=== PATIENT | male | born 1945 | race Caucasian/White ===

== ENCOUNTER 2022-12-11 10:27 | Inpatient (IN) | payer MEDICARE, OTHER ==
[~2022-12-11] VITALS: Ht 172.7 cm; Wt 81.2 kg
[~2022-12-11 10:27] MED LIST: AMLO-212 PO; ASPI-807 PO; GEMF600T90 PO; OMEG1CAP55 PO
--- NOTE | 2022-12-11 10:37 | NUR ---
IV ESTABLISHED L AC 18G. LABS DRAWN AND COLLECTED AT BEDSIDE.
--- NOTE | 2022-12-11 10:40 | NUR ---
EKG DONE AT BEDSIDE BY EMT
--- NOTE | 2022-12-11 10:48 | NUR ---
COVID SWAB TAKEN
[2022-12-11 10:51] LABS: BASOPHILS % (AUTO) 0.5 % (0.0-2.0); EOSINOPHILS % (AUTO) 0.6 % (0.0-6.0); HEMATOCRIT 43 % (39-51); HEMOGLOBIN 14.2 g/dL (13.5-17.5); LYMPHOCYTES % (AUTO) 35.1 % (20.0-44.0); MEAN CORPUSCULAR HGB CONC 33 g/dl (31.0-36.0); MEAN CORPUSCULAR VOLUME 85 fL (80-96); MONOCYTES # (AUTO) 0.3 K/uL (0.1-1.30); MONOCYTES % (AUTO) 5.5 % (2.0-12.0); NEUTROPHILS # (AUTO) 3.3 K/uL (1.8-8.9); NEUTROPHILS % (AUTO) 58.3 % (43.0-81.0); PLATELET COUNT (AUTO) 229 K/uL (150-450); RED BLOOD CELL COUNT(AUTO) 5.05 MIL/uL (4.5-6.0); WHITE BLOOD COUNT (AUTO) 5.6 K/uL (4.3-11.0)
[2022-12-11 11:20] LABS: ALANINE AMINOTRANSFERASE 19 U/L (12-78); ALBUMIN 3.9 g/dL (3.4-5.0); ALKALINE PHOSPHATASE 75 U/L (46-116); ASPARTATE AMINOTRANSFERASE 15 U/L (15-37); BILIRUBIN,DIRECT 0.1 mg/dL (0.0-0.2); BILIRUBIN,TOTAL 0.6 mg/dL (0.2-1.0); CALCIUM, SERUM 9.7 mg/dL (8.5-10.1); CARBON DIOXIDE 24 mmol/L (21-32); CHLORIDE 100 mmol/L (98-107); POTASSIUM 3.8 mmol/L (3.5-5.1); SODIUM SERUM 133 mmol/L (136-145); TOTAL PROTEIN, SERUM 7.2 g/dL (6.4-8.2); UREA NITROGEN, BLOOD 19 mg/dL (7-18)
[2022-12-11 11:24] LABS: GLUCOSE 373 mg/dL (74-106)
[2022-12-11] MEDS ORDERED: ACETAMINOPHEN 325 MG TABLET PO PRN (12:00)
[2022-12-11] MEDS: ENOXAPARIN SODIUM 40 MG/0.4 ML DISP.SYRIN SQ SCH (12:00)
[2022-12-11] MEDS ORDERED: DEXTROSE 50%-WATER 50 ML DISP.SYRIN IV PRN (12:00)
[2022-12-11] MEDS ORDERED: MORPHINE SULFATE INJ 2 MG/ML DISP.SYRIN IV PRN (12:00)
[2022-12-11] MEDS ORDERED: ONDANSETRON HCL/PF 4 MG/2 ML VIAL IVP PRN (12:00)
[2022-12-11 12:25] LABS: CHOLESTEROL 239 mg/dL (<200); HDL CHOLESTEROL 41 mg/dL (40-60); LDL 131 mg/dL (0-99); TRIGLYCERIDES 381 mg/dL (30-150)
[2022-12-11] MEDS ORDERED: IPRATROPIUM NEB FS 0.5 MG/2.5 ML AMPUL.NEB NEB PRN (12:30)
--- NOTE | 2022-12-11 12:43 | NUR ---
REPORT GIVEN TO FLOOR NURSE
[2022-12-11] MEDS: METOPROLOL TARTRATE INJ 5 MG/5 ML AMPUL IVP PRN ×6 (13:02→15:17)
[2022-12-11] MEDS ORDERED: CT SWABBABLE VALVE TRANS SET 1 EA INFUS.SET MC ONE ×2 (14:31→15:14)
[2022-12-11] MEDS ORDERED: IOHEXOL-350 100 ML VIAL IV ONE ×2 (14:31→15:14)
[2022-12-11] MEDS ORDERED: IV NS 0.9% 250 ML IV ONE ×2 (14:32→15:14)
[2022-12-11] MEDS ORDERED: METOPROLOL TARTRATE INJ 5 MG/5 ML AMPUL ONE ×3 (14:53→15:04)
[2022-12-11] MEDS ORDERED: NITROGLYCERIN 0.4 MG/TAB BOTTLE SL ONE (15:00)
--- NOTE | 2022-12-11 15:11 | NUR ---
MOVED TO INPATIENT ROOM SAFELY PER ACLS PROTOCOL
--- NOTE | 2022-12-11 15:30 | NUR ---
ADMITTED PATIENT TO THE ROOM. PT IS A/O X 4, AMBULATORY WITH BPR, CAME TO THE ER FROM HOME D/T SOB. IV ACCESS LEFT AC 20G, SL. SKIN IS INTACT. PT GOING FOR CT ANGIOGRAM RIGHT NOW.
[2022-12-11 16:00] VITALS: BP 110/66
[2022-12-11] MEDS: METOPROLOL TARTRATE 50 MG TABLET PO SCH (18:00)
[2022-12-11] MEDS: BLOOD SUGAR DIAGNOSTIC 1 EACH STRIP VI SCH ×3 (18:00→21:40)
[2022-12-11] MEDS: INSULIN REGULAR, HUMAN 100 UNIT/ML 3 ML VIAL SQ PRN (18:09)
--- NOTE | 2022-12-11 18:42 | NUR ---
PATIENT IN BED, ALERT, COOPERATIVE, ON RA O2 96%, NO DISTRESS NOTED, AMBULATORY. WILL ENDORSE TO THE SILVERER NURSE FOR ADAMARIS.
--- NOTE | 2022-12-11 19:40 | NUR ---
RN OPENING NOTE RECEIVED PATIENT IN BED, AAO X4, ABLE TO MAKE NEEDS KNOWN. ON ROOM AIR, O2 SAT 93%, NO SOB/DISTRESS NOTED AND DENIES PAIN AT THIS TIME. ON TELE MONITOR SHOWING SINUS RHYTHM HR 68. IV ACCESS LAC 20G, S/L, INTACT AND FLUSHING WELL. PATIENT IS AMBULATORY WITH BRP. SAFETY MEASURES IN PLACE: BED LOCKED AND IN LOWEST POSITION, SIDE RAILS UP X2, CALL LIGHT WITHIN REACH, BED ALARM ON.
[2022-12-11 20:00] VITALS: BP 123/73
[2022-12-11] MEDS: ATORVASTATIN 40 MG TABLET PO SCH (21:14)
[2022-12-11] MEDS: *INSULIN REGULAR(HUMULIN R)HUM 100 UNIT/ML VIAL SQ PRN (21:41)
[2022-12-12] VITALS: BP 128/82
[2022-12-12] MEDS: METOPROLOL TARTRATE 50 MG TABLET PO SCH ×4 (01:10→17:35)
[2022-12-12 04:00] VITALS: BP 133/58
[2022-12-12 07:02] LABS: BASOPHILS % (AUTO) 0.4 % (0.0-2.0); EOSINOPHILS % (AUTO) 1.3 % (0.0-6.0); HEMATOCRIT 43 % (39-51); HEMOGLOBIN 14.7 g/dL (13.5-17.5); LYMPHOCYTES # (AUTO) 2.8 K/uL (0.8-4.8); LYMPHOCYTES % (AUTO) 41.5 % (20.0-44.0); MEAN CORPUSCULAR HGB CONC 34 g/dl (31.0-36.0); MEAN CORPUSCULAR VOLUME 83 fL (80-96); MONOCYTES # (AUTO) 0.5 K/uL (0.1-1.30); MONOCYTES % (AUTO) 8.1 % (2.0-12.0); NEUTROPHILS # (AUTO) 3.3 K/uL (1.8-8.9); NEUTROPHILS % (AUTO) 48.7 % (43.0-81.0); PLATELET COUNT (AUTO) 242 K/uL (150-450); RED BLOOD CELL COUNT(AUTO) 5.16 MIL/uL (4.5-6.0); WHITE BLOOD COUNT (AUTO) 6.7 K/uL (4.3-11.0)
[2022-12-12 07:16] LABS: ALANINE AMINOTRANSFERASE 22 U/L (12-78); ALBUMIN 3.9 g/dL (3.4-5.0); ALKALINE PHOSPHATASE 69 U/L (46-116); ASPARTATE AMINOTRANSFERASE 15 U/L (15-37); BILIRUBIN,TOTAL 0.7 mg/dL (0.2-1.0); CALCIUM, SERUM 9.7 mg/dL (8.5-10.1); CARBON DIOXIDE 26 mmol/L (21-32); CHLORIDE 102 mmol/L (98-107); CREATININE 0.8 mg/dL (0.6-1.3); GLUCOSE 144 mg/dL (74-106); MAGNESIUM 2.4 mg/dL (1.8-2.4); PHOSPHORUS 4.9 mg/dL (2.5-4.9); POTASSIUM 4.6 mmol/L (3.5-5.1); SODIUM SERUM 138 mmol/L (136-145); TOTAL PROTEIN, SERUM 7.4 g/dL (6.4-8.2); UREA NITROGEN, BLOOD 16 mg/dL (7-18)
--- NOTE | 2022-12-12 07:25 | NUR ---
RN CLOSING NOTE PATIENT IN BED, AAO X4, ASLEEP, BUT AROUSABLE. ABLE TO MAKE NEEDS KNOWN. ON ROOM AIR, O2 SAT 95%, NO SOB/DISTRESS NOTED AND DENIES PAIN AT THIS TIME. ON TELE MONITOR SHOWING SINUS RHYTHM HR 64. IV ACCESS LAC 20G, S/L, INTACT AND FLUSHING WELL. PATIENT IS AMBULATORY WITH BRP. SAFETY MEASURES IN PLACE: BED LOCKED AND IN LOWEST POSITION, SIDE RAILS UP X2, CALL LIGHT WITHIN REACH, BED ALARM ON. ALL DUE MEDS WERE GIVEN AND NEEDS ATTENDED. WILL ENDORSE TO ONCOMING NURSE FOR ADAMARIS
--- NOTE | 2022-12-12 07:48 | NUR ---
RN OPENING NOTE RECEIVED PATIENT IN BED, AAO X4, ABLE TO MAKE NEEDS KNOWN. ON ROOM AIR, O2 SAT 93%, NO SOB/DISTRESS NOTED AND DENIES PAIN AT THIS TIME. ON TELE MONITOR SHOWING SINUS RHYTHM HR 65. IV ACCESS LAC 20G, S/L, INTACT AND FLUSHING WELL. PATIENT IS AMBULATORY WITH BRP. SAFETY MEASURES IN PLACE: BED LOCKED AND IN LOWEST POSITION, SIDE RAILS UP X2, CALL LIGHT WITHIN REACH, BED ALARM ON. WILL MONITOR FOR ANY CHANGES
[2022-12-12 08:00] VITALS: BP 131/80
[2022-12-12] MEDS: BLOOD SUGAR DIAGNOSTIC 1 EACH STRIP VI SCH ×2 (08:06→11:43)
[2022-12-12] MEDS: INSULIN REGULAR, HUMAN 100 UNIT/ML 3 ML VIAL SQ PRN ×4 (09:38→22:02)
[2022-12-12] MEDS: ASPIRIN EC 81 MG TABLET.DR PO SCH (09:41)
[2022-12-12] MEDS: predniSONE 20 MG TABLET PO SCH (10:53)
[2022-12-12 12:00] VITALS: BP 126/72
[2022-12-12] MEDS: ENOXAPARIN SODIUM 40 MG/0.4 ML DISP.SYRIN SQ SCH (12:35)
[2022-12-12] MEDS ORDERED: DEXTROSE 50%-WATER 50 ML DISP.SYRIN IV PRN (14:30)
[2022-12-12 16:00] VITALS: BP 127/68
[2022-12-12] MEDS: BLOOD SUGAR DIAGNOSTIC 1 EACH STRIP IN SCH ×2 (17:22→22:19)
--- NOTE | 2022-12-12 19:35 | NUR ---
RN CLOSING NOTES; RECEIVED PT IN BED AAOX4 CHINESE SPEAKING,ON RM AIR MISA WELL SAT 98%,NO SOB/DISTRESS NOTED,NO COMPLAIN OF PAIN/DISCOMFORT AT THIS TIME,IV ACCESS ON LAC 20G SL,PATENT AND INTACT,ALL DUE MEDS GIVEN ORDERED AND PATIENT FOR CARDIAC CATH IN AM AND FOR NPO POS MIDNIGHT AND PATIENT AWARE SAFETY MEASURE IN PLACE,CALL LIGHT WITHIN REACH, ENDORSED TO NEXT SHIFT .
--- NOTE | 2022-12-12 19:38 | NUR ---
RN OPENING NOTES; RECEIVED PT IN BED AAOX4 HAITIAN SPEAKING,ON RM AIR MISA WELL SAT 98%,NO SOB/DISTRESS NOTED,NO COMPLAIN OF PAIN/DISCOMFORT AT THIS TIME,IV ACCESS ON LAC 20G SL,PATENT AND INTACT,SAFETY MEASURE IN PLACE,CALL LIGHT WITHIN REACH,WILL CONTINUE TO MONITOR.
[2022-12-12 20:00] VITALS: BP 136/77
[2022-12-12] MEDS: IPRATROPIUM NEB FS 0.5 MG/2.5 ML AMPUL.NEB NEB SCH (20:16)
[2022-12-12] MEDS: ATORVASTATIN 40 MG TABLET PO SCH (21:19)
[2022-12-13] VITALS: BP 140/84
[2022-12-13] MEDS: IPRATROPIUM NEB FS 0.5 MG/2.5 ML AMPUL.NEB NEB SCH ×6 (00:16→20:20)
[2022-12-13 04:00] VITALS: BP 129/76
[2022-12-13] MEDS: METOPROLOL TARTRATE 50 MG TABLET PO SCH ×4 (05:09→17:53)
--- NOTE | 2022-12-13 06:21 | NUR ---
RN CLOSING NOTE; PATIENT IN BED AAOX4 PERUVIAN SPEAKING,ON RM AIR MISA WELL SAT 97%,NO SOB/DISTRESS NOTED,NO COMPLAIN OF PAIN/DISCOMFORT DURING SHIFT,DUE MEDS GIVEN ORDER,ALL NEEDS ATTENDED,IV ACCESS ON LAC 20G SL,PT BRP AND STEADY GAIT,PT NPO SINCE MID NIGHT,SAFETY MEASURE IN PLACE,CALL LIGHT WITHIN REACH,WILL ENDORSED TO NEXT SHIFT,
--- NOTE | 2022-12-13 07:05 | NUR ---
RN OPENING NOTES; RECEIVED PT STANDING IN THE HALLWAY IN FRONT OF HIS ROOM.AAOX4 PANAMANIAN SPEAKING,ON RM AIR MISA WELL SAT 98%,NO SOB/DISTRESS NOTED,NO COMPLAIN OF PAIN/DISCOMFORT AT THIS TIME,IV ACCESS ON LAC 20G SL,PATENT AND INTACT,SAFETY MEASURE IN PLACE,CALL LIGHT WITHIN REACH,NPO AT THIS TIME FOR POSSIBLE CARDIAC CATH TODAY.WILL CONTINUE TO MONITOR.
[2022-12-13] MEDS: BLOOD SUGAR DIAGNOSTIC 1 EACH STRIP IN SCH ×4 (07:55→21:21)
[2022-12-13 08:00] VITALS: BP 112/65
--- NOTE | 2022-12-13 08:00 | NUR ---
RN NOTES: PER CHARGE NURSE PT WILL HAVE CARDIAC CATH TOMORROW AND CAN EAT TODAY, CALLED KITCHEN AND ORDERED BREAKFAST
[2022-12-13 08:13] LABS: CALCIUM, SERUM 9.7 mg/dL (8.5-10.1); CARBON DIOXIDE 29 mmol/L (21-32); CHLORIDE 101 mmol/L (98-107); GLUCOSE 154 mg/dL (74-106); POTASSIUM 4.1 mmol/L (3.5-5.1); SODIUM SERUM 138 mmol/L (136-145); UREA NITROGEN, BLOOD 19 mg/dL (7-18)
[2022-12-13 08:21] LABS: BASOPHILS % (AUTO) 0.3 % (0.0-2.0); EOSINOPHILS % (AUTO) 0.9 % (0.0-6.0); HEMATOCRIT 44 % (39-51); HEMOGLOBIN 14.5 g/dL (13.5-17.5); LYMPHOCYTES # (AUTO) 3.2 K/uL (0.8-4.8); LYMPHOCYTES % (AUTO) 40.7 % (20.0-44.0); MEAN CORPUSCULAR HGB CONC 33 g/dl (31.0-36.0); MEAN CORPUSCULAR VOLUME 86 fL (80-96); MONOCYTES # (AUTO) 0.5 K/uL (0.1-1.30); MONOCYTES % (AUTO) 6.9 % (2.0-12.0); NEUTROPHILS % (AUTO) 51.2 % (43.0-81.0); PLATELET COUNT (AUTO) 238 K/uL (150-450); RED BLOOD CELL COUNT(AUTO) 5.14 MIL/uL (4.5-6.0); WHITE BLOOD COUNT (AUTO) 7.8 K/uL (4.3-11.0)
[2022-12-13] MEDS: LINAGLIPTIN 5 MG TABLET PO SCH (08:46)
[2022-12-13] MEDS: ASPIRIN EC 81 MG TABLET.DR PO SCH (08:46)
[2022-12-13] MEDS: predniSONE 20 MG TABLET PO SCH (08:46)
[2022-12-13 12:00] VITALS: BP 137/77
[2022-12-13] MEDS: ENOXAPARIN SODIUM 40 MG/0.4 ML DISP.SYRIN SQ SCH (12:00)
--- NOTE | 2022-12-13 12:00 | NUR ---
rn notes: eduarda granado . pt scheduled for cardiac laborer driver in am
[2022-12-13] MEDS: INSULIN REGULAR, HUMAN 100 UNIT/ML 3 ML VIAL SQ PRN ×2 (12:40→17:53)
[2022-12-13 16:00] VITALS: BP 132/76
--- NOTE | 2022-12-13 19:25 | NUR ---
PARK ATTENDANT CLOSING NOTES PATIENT IB BED, AOX4, GREENLANDIC/ITALIAN SPEAKING, ON RM AIR MISA WELL SAT 98%,NO SOB/DISTRESS NOTED,NO COMPLAIN OF PAIN/DISCOMFORT AT THIS TIME, IV ACCESS ON LAC 20G SL,PATENT AND INTACT,SAFETY MEASURE IN PLACE,CALL LIGHT WITHIN REACH. CARDIAC DIET, NPO AFTER MIDNIGHT FOR CARDIAC CATH TOMORROW AM.WILL CONTINUE TO MONITOR. ENDORSED TO THE NEXT SHIFT
--- NOTE | 2022-12-13 19:30 | NUR ---
RN opening notes Pt is laying in bed comfortably accompanied by Pt' . Pt is alert and orientedX4. On room air. No SOB. No S/S of distress noted. Tele monitor showed SR hr at 76. IV site at LFA# 20 is clean, intact, flushes well and SL. central lab technician procedure in am. NPO midnight. Pt verbalize understanding. Safety precautions is maintained. bed at low position, brakes locked, side rails upX2, hob elevated, bed alarm is on and call light is within reach. Will continue to monitor.
[2022-12-13 20:00] VITALS: BP 138/69
--- NOTE | 2022-12-13 20:39 | NUR ---
RN notes Informed and notify Dr. Escudero regarding Pt is scheduled for cardiac cath in am. MD ordered for type and screen. Charge nurse is aware and informed.
[2022-12-13] MEDS: ATORVASTATIN 40 MG TABLET PO SCH (21:03)
[2022-12-13] MEDS: *INSULIN REGULAR(HUMULIN R)HUM 100 UNIT/ML VIAL SQ PRN (21:21)
[2022-12-14] VITALS: BP 128/80
--- NOTE | 2022-12-14 | NUR ---
RN notes Held BP for NPO diagnosis. Cardiac cath in am. BP 128/80. HR 70.
[2022-12-14] MEDS: IPRATROPIUM NEB FS 0.5 MG/2.5 ML AMPUL.NEB NEB SCH ×7 (00:04→23:01)
[2022-12-14 04:00] VITALS: BP 138/45
[2022-12-14] MEDS: METOPROLOL TARTRATE 50 MG TABLET PO SCH ×4 (05:53→17:33)
--- NOTE | 2022-12-14 06:42 | NUR ---
RN closing notes Pt is resting in bed comfortably. Pt is alert and orientedX4. On room air. No SOB. No S/S of distress noted. Tele monitor showed SR with first degree av block hr at 73. IV site at LFA# 20 is clean, intact, flushes well and SL. veterinarian laboratory animal care procedure today. NPO. Routine meds were given as ordered. Kept Pt clean, dry and comfortable. Safety precautions is maintained. bed at low position, brakes locked, side rails upX2, hob elevated, bed alarm is on and call light is within reach. Will endorse to am nurse for ADAMARIS.
[2022-12-14 07:23] LABS: BASOPHILS % (AUTO) 0.3 % (0.0-2.0); EOSINOPHILS % (AUTO) 0.7 % (0.0-6.0); HEMATOCRIT 43 % (39-51); HEMOGLOBIN 14.7 g/dL (13.5-17.5); LYMPHOCYTES # (AUTO) 2.7 K/uL (0.8-4.8); LYMPHOCYTES % (AUTO) 37.6 % (20.0-44.0); MEAN CORPUSCULAR HGB CONC 34 g/dl (31.0-36.0); MEAN CORPUSCULAR VOLUME 83 fL (80-96); MONOCYTES # (AUTO) 0.5 K/uL (0.1-1.30); NEUTROPHILS % (AUTO) 54.4 % (43.0-81.0); PLATELET COUNT (AUTO) 221 K/uL (150-450); RED BLOOD CELL COUNT(AUTO) 5.21 MIL/uL (4.5-6.0); WHITE BLOOD COUNT (AUTO) 7.3 K/uL (4.3-11.0)
--- NOTE | 2022-12-14 07:30 | NUR ---
STAMPING MILL TENDER OPENING NOTE PT RESTING IN BED COMFORTABLY. PT ALERT AND ORIENTED X4. PT ON ROOM AIR. ON TELE MONITOR SHOWING SINUS RHYTM 78. PT HAS IV SITE ON LEFT FOREARM 20 GUAGE. IV INTACT, PATENT AND FLUSHING WELL. PT PENDING BAND LINING BANDER PROCEDURE TODAY.ALL SAFETY MEASURES IN PLACE. BED LOCKED AT LOWEST POSITION. SIDE RAILS UP X2. BED ALARM ON
[2022-12-14] MEDS: BLOOD SUGAR DIAGNOSTIC 1 EACH STRIP IN SCH ×4 (07:33→21:33)
[2022-12-14 07:35] LABS: CALCIUM, SERUM 9.2 mg/dL (8.5-10.1); CREATININE 0.9 mg/dL (0.6-1.3); POTASSIUM 4.2 mmol/L (3.5-5.1)
--- NOTE | 2022-12-14 07:37 | NUR ---
RN NOTE BS 148. NO COVERAGE AT THIS TIME DUE TO PT BEING NPO AND PENDING CARDIAC CATH PROCEDURE
[2022-12-14] MEDS ORDERED: IODIXANOL 150 ML IV ONE (07:53)
[2022-12-14] MEDS ORDERED: IV NS 0.9% 1,000 ML ONE (07:53)
[2022-12-14] MEDS ORDERED: IV SET PRIMARY PUMP SET 1 EA INFUS.SET MC ONE (07:53)
[2022-12-14] MEDS ORDERED: LIDOCAINE HCL/PF 1% 30 ML SDV ONE (07:53)
[2022-12-14 08:00] VITALS: BP 114/74
[2022-12-14] MEDS ORDERED: NITROGLYCERIN IN 5 % DEXTROSE 250 ML IV ONE (08:17)
[2022-12-14] MEDS: ASPIRIN EC 81 MG TABLET.DR PO SCH (08:22)
--- NOTE | 2022-12-14 08:22 | NUR ---
RN NOTE PT LEFT FOR CARDIAC CATH PROCEDURE AT THIS TIME. UNABLE TO GIVE MORNING MEDS AT THIS TIME. AT BEDSIDE.
[2022-12-14] MEDS: LINAGLIPTIN 5 MG TABLET PO SCH (08:23)
[2022-12-14] MEDS: predniSONE 20 MG TABLET PO SCH (08:23)
[2022-12-14] MEDS ORDERED: FENTANYL PF 100MCG/2ML AMPUL ONE (09:18)
[2022-12-14] MEDS ORDERED: MIDAZOLAM HCL 2 MG/2ML VIAL ONE (09:18)
[2022-12-14] MEDS ORDERED: IODIXANOL 320MG/ML 0 ML IV ONE (09:37)
--- NOTE | 2022-12-14 10:10 | NUR ---
RN NOTE PT CAME BACK FROM CARDIAC CLAY GRINDER PROCEDURE. AT BESIDE. PT REQURING TRANSFER FOR HIGHER LEVEL OF CARE. TR BAND IN PLACE. PER CLAY GRINDER NURSE START RELASING AIR @1136 NOTIFIED THAT PT AND FAMILY WOULD LIKE TO SPEAK WITH HIM. SHAZIA [phone]. DR. BOURGEOIS AWARE
[2022-12-14] MEDS: ENOXAPARIN SODIUM 40 MG/0.4 ML DISP.SYRIN SQ SCH ×2 (11:22→12:00)
--- NOTE | 2022-12-14 11:22 | NUR ---
rn note hold lovenox due to possible surgery tomorrow at [facility]
--- NOTE | 2022-12-14 11:41 | NUR ---
rn note removed 3cc air from tr band. no signs of leakage or bleeding at site
--- NOTE | 2022-12-14 11:56 | NUR ---
rn note removed 3cc of air. no leakage or bleeding at site
[2022-12-14 12:00] VITALS: BP 126/72
--- NOTE | 2022-12-14 12:29 | NUR ---
rn note per hold lovenox due to pending surgery tomorrow at [facility]
--- NOTE | 2022-12-14 12:50 | NUR ---
rn note removed 3cc of air. no leaking or bleeding at this time
--- NOTE | 2022-12-14 12:51 | NUR ---
rn note removed TR band. no bleeding or leakage around site
[2022-12-14] MEDS: INSULIN REGULAR, HUMAN 100 UNIT/ML 3 ML VIAL SQ PRN ×2 (12:54→17:34)
[2022-12-14 16:00] VITALS: BP 114/69
--- NOTE | 2022-12-14 17:19 | NUR ---
rn note gave report to Jo Ann FREEMAN at [facility] on transfer report for tomorromow morning for possible procedure
--- NOTE | 2022-12-14 19:34 | NUR ---
PARENT EDUCATOR CLOSING NOTE PT RESTING IN BED COMFORTABLY. PT ALERT AND ORIENTED X4.AFGHAN SPEAKING. PT ON ROOM AIR TOLERATING AT 97%. ON TELE MONITOR SHOWING SINUS RHYTM 77.PT AMBULATORY. PT HAS IV SITE ON LEFT FOREARM 20 GUAGE. IV INTACT, PATENT AND FLUSHING WELL. .ALL SAFETY MEASURES IN PLACE. BED LOCKED AT LOWEST POSITION. SIDE RAILS UP X2. BED ALARM ON. FAMILY AT BEDSIDE. ENDORSED TO APPEALS REFEREE RN FOR CONTUITY OF CARE
--- NOTE | 2022-12-14 19:52 | NUR ---
RN Opening Notes Received pt in bed, asleep, awakens to verbal stimuli. AOx4, able to make needs known. On RA and tolerating well. Tele monitor detects SR with rate of 77. IV access in LAC #20G. IV is intact, patent, and flushing well. Safety precautions in place: bed in lowest, locked position, siderails upX2, and brakes on. Table and call light within reach. All needs met at this time.
[2022-12-14 20:00] VITALS: BP 104/71
[2022-12-14] MEDS: ATORVASTATIN 40 MG TABLET PO SCH (21:27)
[2022-12-14] MEDS: *INSULIN REGULAR(HUMULIN R)HUM 100 UNIT/ML VIAL SQ PRN (21:34)
[2022-12-15] VITALS: BP 125/75
[2022-12-15] MEDS: IPRATROPIUM NEB FS 0.5 MG/2.5 ML AMPUL.NEB NEB SCH (03:28)
[2022-12-15 04:00] VITALS: BP 140/76
[2022-12-15] MEDS: METOPROLOL TARTRATE 50 MG TABLET PO SCH ×2 (05:25)
--- NOTE | 2022-12-15 06:40 | NUR ---
RN Closing Notes Pt in bed, asleep, awakens to verbal stimuli. AOx4, able to make needs known. On RA and tolerating well. Tele monitor detects SR with rate of 77. IV access in LAC #20G. IV is intact, patent, and flushing well. All orders carried out. All needs met. Pt kept clean and dry. Pt kept NPO after midnight. Safety precautions in place: bed in lowest, locked position, siderails upX2, and brakes on. Table and call light within reach. Will endorse to oncoming shift for ADAMARIS.
--- NOTE | 2022-12-15 07:32 | NUR ---
rn note gave report to Trupti FREEMAN at [facility] Surgery Department
--- NOTE | 2022-12-15 07:33 | NUR ---
yarn spinner note pt left in stable condition. pt alert and oriented x4.picked up by parademic team.removed tele monitor box. per dietary aide cook request left iv. all belongings with pt's . pt has been npo since midnight 12/15. went over discharge instructions with patient. pt verbalized understanding. and signed paperwork. transfer consent signed and in chart Addendum: 12/15/22 at 0737 by KAVON MÁRQUEZ RN transferred to [facility] for higher level of care
[2022-12-15] MEDS ORDERED: predniSONE 20 MG TABLET PO SCH (09:00)
== END 2022-12-15 09:37 | disposition short-term general hospital (02) | DRG 287 ==
LOC: ER 10:33 → TELE1 12:19
PROVIDERS: ADMIT Internal Medicine; ATTEND Nurse Practitioner Acute Care
PROC: 4A023N7 Measurement of Cardiac Sampling and Pressure, Left Heart, Percutaneous Approach (ICD-10-PCS; principal; 2022-12-14)
PROC: B211YZZ Fluoroscopy of Multiple Coronary Arteries using Other Contrast (ICD-10-PCS; 2022-12-14)
DX: I25.10 Atherosclerotic heart disease of native coronary artery without angina pectoris (principal); J44.1 Chronic obstructive pulmonary disease with (acute) exacerbation; E11.65 Type 2 diabetes mellitus with hyperglycemia; I10 Essential (primary) hypertension; Z98.61 Coronary angioplasty status; Z20.822 Contact with and (suspected) exposure to COVID-19; I25.2 Old myocardial infarction; Z79.82 Long term (current) use of aspirin; E78.5 Hyperlipidemia, unspecified; F17.210 Nicotine dependence, cigarettes, uncomplicated
CPT/HCPCS: 36415; 71045-TC; 75574; 80048-TC; 80053-TC; 80061-TC; 80076-TC; 82962-TC; 83735-TC; 83880; 84100-TC; 84484-TC; 85025-TC; 85730-TC; 86850-TC; 93307-TC; 94799-TC; A4223; C1769; C9803; G0378; G0500; J1644; J1650; J1815; J2250; J3010; J3490; J7030; J7050; Q9967